=== PATIENT | female | born 1955 | race Two or more races ===

== ENCOUNTER 2019-01-12 10:38 | Emergency (ER) | payer BC, OTHER ==
[~2019-01-12] VITALS: Ht 162.6 cm; Wt 56.7 kg
[2019-01-12] MEDS ORDERED: LEXAPRO20 MG (10:47)
[2019-01-12] MEDS ORDERED: COZAAR50 MG (10:47)
[2019-01-12] MEDS ORDERED: ALAVERT D-12 A1 EACH PO (11:43)
[2019-01-12] MEDS ORDERED: TOBRADEX ST EYE5 ML OP (11:43)
== END 2019-01-12 11:51 | disposition home or self-care (01) ==
LOC: ER 10:38
DX: H57.12 Ocular pain, left eye (principal)